=== PATIENT | male | born 1960 | race Caucasian/White ===

== ENCOUNTER 2016-10-15 07:42 | Day surgery (SDC) | payer OTHER ==
[2016-10-15] MEDS ORDERED: DIAZEPAM 5 MG TAB PO ONE (07:44)
[2016-10-15] MEDS ORDERED: FAMOTIDINE 20 MG TAB PO ONE (07:44)
[2016-10-15] MEDS ORDERED: ASPIRIN EC 325 MG TAB PO ONE (07:44)
[2016-10-15] MEDS ORDERED: NS 1,000 ML IV ONE (07:44)
[2016-10-15] MEDS ORDERED: diphenhydrAMINE 25 MG CAP PO ONE (07:44)
--- NOTE | 2016-10-15 08:15 | CPEKG ---
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 Electronically Signed By: Dylon Sommers 15-Oct-2016 11:57:13
[2016-10-15] MEDS ORDERED: ASPIRIN EC 81 MG TAB PO ONE (08:27)
[2016-10-15 08:30] LABS: % IMMATURE GRANULYOCYTES 0.2 % (0.0-1.1); ABSOLUTE IMMATURE GRANULOCYTES 0.01 10^3/uL (0.00-0.10); ADD DIFF? NO; ADD MORPH? NO; ADD SCAN? NO; ATYPICAL LYMPHOCYTE FLAG 20 (0-99); FRAGMENT RBC FLAG 0 (0-99); HEMATOCRIT 48.5 % (40.0-51.0); HEMOGLOBIN 16.5 g/dL (13.7-17.5); LEFT SHIFT FLG 0 (0-99); LIPEMIA HEMOLYSIS FLAG 90 (0-99); MEAN CELL HEMOGLOBIN 30.1 pg (27.9-34.1); MEAN CELL VOLUME 88.3 fL (81.5-99.8); MEAN PLATELET VOLUME 9.3 fL (8.7-11.7); PLATELET CLUMPS FLAG 0 (0-99); PLATELET COUNT 203 10^3/uL (150-400); RED BLOOD CELL COUNT 5.49 10^6/uL (4.40-6.38); RED CELL DISTRIBUTION WIDTH 12.8 % (11.5-15.2)
[2016-10-15] MEDS ORDERED: LIDOCAINE 1% 300 MG/30 ML SDV ONE (08:36)
[2016-10-15] MEDS ORDERED: fentaNYL 100 MCG/2 ML INJ ONE (08:37)
[2016-10-15] MEDS ORDERED: MIDAZOLAM 2 MG/2 ML VIAL ONE ×2 (08:37→10:25)
[2016-10-15] MEDS ORDERED: IOPAMIDOL (ISOVUE-370) 150 ML BTL IV ONE (08:38)
[2016-10-15 08:40] LABS: INR 0.98 (0.83-1.16); PROTIME(PATIENT) 12.9 SEC (12.0-15.0)
[2016-10-15 08:45] LABS: ANION GAP 12 mEq/L (8-16); CALCIUM 9.2 mg/dL (8.5-10.4); CARBON DIOXIDE 22 mEq/l (22-31); CHLORIDE 106 mEq/L (97-110); CHOLESTEROL 124 mg/dL (140-220); CHOLESTEROL/HDL RATIO 2.34 RATIO (1.00-4.97); CREATININE 0.7 mg/dL (0.7-1.3); GLOMERULAR FILTRATION RATE > 60; GLUCOSE 115 mg/dL (70-100); HIGH DENSITY LIPOPROTEIN 53 mg/dL (40-65); LDL/HDL RATIO 0.85 RATIO (1.00-3.64); LOW DENSITY LIPOPROTEIN 45 mg/dL (80-100); NON-HIGH DENSITY LIPOPROTEIN 71 mg/dL (90-129); SODIUM 140 mEq/L (134-144); TRIGLYCERIDE 131 mg/dL (40-150); VERY LOW DENSITY LIPOPROTEINS 26 mg/dL (8-25)
[2016-10-15] MEDS ORDERED: BIVALIRUDIN 250 MG/5 ML VIAL IV ONE (10:12)
[2016-10-15] MEDS ORDERED: ADENOSINE 90 MG/30 ML VIAL IV ONE (10:14)
--- NOTE | 2016-10-15 11:42 | CPIP ---
[f rep st] INVASIVE CARDIAC PROCEDURE DATE OF PROCEDURE: 10/15/2016 PROCEDURES: 1. Coronary angiography. 2. Left ventriculography. 3. Fractional flow reserve of the left anterior descending coronary artery. INDICATION: 1. Multiple cardiac risk factors including hypertension, hyperlipidemia, diabetes mellitus, and fam jo ann history. 2. Dyspnea on exertion concerning for class II angina. 3. Abnormal nuclear stress test with inferior defect. 4. Intermediate to high-grade lesion involving the mid left anterior descending coronary artery. ACCESS: Patient was prepped and draped in sterile fashion. 1% lidocaine was used to anesthetize th e right inguinal region. A 6-[place] introducer sheath was placed selectively into the right common femoral artery via modified Seldinger technique. CORONARY ANGIOGRAPHY: A 6-[place] JL4 was advanced to left main coronary artery and images obtained. The left main coronary artery bifurcated into an LAD and circumflex coronary arteries. The left m ain coronary artery appeared normal. The left anterior descending coronary artery gave rise to 3 pr ominent diagonal branches. The left anterior descending coronary artery had mild diffuse disease thr oughout. In the mid vessel, there is a single discrete eccentric 50% to 70% stenosis present. The second diagonal artery had an ostial 40% to 50% stenosis present. The remainder of the diagonal art eries were free of any significant disease. The circumflex coronary artery is a moderate-sized vess el. The circumflex coronary artery gave rise to two OM branches. The circumflex coronary artery an d its complement of OM branches appeared normal. A 6-[place] JR4 was advanced to the right coronary artery and images obtained. The right coronary artery is dominant. The right coronary artery had m ild diffuse disease throughout. In the proximal segment, there is a single discrete 20% stenosis pr esent. LEFT VENTRICULOGRAPHY: A 6-[place] pigtail catheter was advanced in the left ventricle and images ob tained. Left ventricle is normal size and normal systolic function. Estimated ejection fraction is 55%. FFR of the left anterior descending coronary artery. A 6-[place] JL4 was advanced to the left main coronary artery and images obtained. Angiography confirmed the presence of an intermediate to high-grade lesion involving the mid left anterior descending coronary artery. An FFR wire was adva nced to the proximal portion of the catheter and equalization begun. The FFR wire was then placed d istal to the lesion and position verified by angiography. IV adenosine was infused and FFR obtained . The FFR was 0.84 indicating no flow limitation. The wire was then withdrawn and equalization was established. COMPLICATIONS: None. CONCLUSIONS: 1. Mild to moderate coronary artery disease without flow limitation. 2. Normal left ventricular size and systolic function. 3. Plan is for medical management. /[id number]/MODL
== END 2016-10-15 13:30 | disposition home or self-care (01) ==
LOC: FCATH 07:42
PROVIDERS: ATTEND Internal Medicine Cardiovascular Disease
PROC: B2111ZZ Fluoroscopy of Multiple Coronary Arteries using Low Osmolar Contrast (ICD-10-PCS; principal; 2016-10-15)
PROC: 4A023N7 Measurement of Cardiac Sampling and Pressure, Left Heart, Percutaneous Approach (ICD-10-PCS; principal; 2016-10-15)
DX: I25.10 Atherosclerotic heart disease of native coronary artery without angina pectoris (principal)
CPT/HCPCS: 93005; 93458; 93571; C1769; C1887; C1760; J0153; J0583; J1200; J1644; J2250; J3010; Q9967